=== PATIENT | male | born 1975 | race Caucasian/White ===

== ENCOUNTER 2017-02-15 21:00 | Emergency (ER) | payer OTHER ==
[~2017-02-15] VITALS: Ht 188 cm; Wt 107.2 kg
[2017-02-15 21:04] VITALS: BP 138/79
== END 2017-02-15 22:23 | disposition home or self-care (01) ==
LOC: ED 21:52
DX: S93.492A Sprain of other ligament of left ankle, initial encounter (principal); W17.89XA Other fall from one level to another, initial encounter; Y93.89 Activity, other specified; Y99.8 Other external cause status; Y92.89 Other specified places as the place of occurrence of the external cause
CPT/HCPCS: 99284

== ENCOUNTER 2017-04-16 20:45 | Emergency (ER) | payer SELFPAY ==
[~2017-04-16] VITALS: Ht 188 cm; Wt 106.5 kg
[2017-04-16 21:16] VITALS: BP 139/87
[2017-04-16 21:30] LABS: BLOOD UREA NITROGEN 15 mg/dL (7-18)
[2017-04-16 21:36] LABS: IS PT STATUS REG ER OR PRE ER? YES
== END 2017-04-16 22:17 | disposition home or self-care (01) ==
LOC: ED 22:11
DX: R06.00 Dyspnea, unspecified (principal); R05 Cough; J98.01 Acute bronchospasm; F17.200 Nicotine dependence, unspecified, uncomplicated
CPT/HCPCS: 36415; 71010; 80048; 82040; 84484; 85025; 93005; 99285

== ENCOUNTER 2017-06-25 10:46 | Emergency (ER) | payer OTHER ==
[~2017-06-25] VITALS: Ht 188 cm; Wt 103.8 kg
[2017-06-25] MEDS ORDERED: LIDOCAINE 1%, 20ML ONE (11:39)
[2017-06-25 12:48] VITALS: BP 128/90
== END 2017-06-25 12:49 | disposition home or self-care (01) ==
LOC: ED 11:13
DX: K64.5 Perianal venous thrombosis (principal)
CPT/HCPCS: 46083

== ENCOUNTER 2017-12-17 14:20 | Emergency (ER) | payer SELFPAY ==
[~2017-12-17] VITALS: Ht 188 cm; Wt 105.2 kg
[2017-12-17 14:24] VITALS: BP 144/89
[2017-12-17] MEDS ORDERED: DEXAMETHASONE 4 MG TABLET PO ONE (15:00)
[2017-12-17] MEDS ORDERED: DEXAMETHASONE 4 MG/ML, 1ML PO ONE (16:00)
[2017-12-17] MEDS ORDERED: DEXAMETHASONE 4 MG TABLET ONE (16:28)
== END 2017-12-17 16:49 | disposition home or self-care (01) ==
LOC: ED 16:02
DX: J02.0 Streptococcal pharyngitis (principal)
CPT/HCPCS: 87880; 99283

== ENCOUNTER 2019-02-12 13:27 | Emergency (ER) | payer SELFPAY ==
[~2019-02-12] VITALS: Ht 188 cm; Wt 106.0 kg
[2019-02-12 13:47] VITALS: BP 135/84
== END 2019-02-12 14:32 | disposition home or self-care (01) ==
LOC: ED 14:31
DX: J06.9 Acute upper respiratory infection, unspecified (principal)
CPT/HCPCS: 71046; 99283